=== PATIENT | female | born 1945 | race Caucasian/White ===

== ENCOUNTER 2020-09-23 08:35 | Day surgery (SDC) | payer MEDICARE ==
[~2020-09-23] VITALS: Ht 160 cm; Wt 59.7 kg
[2020-09-23] VITALS (13 sets, daily range): BP systolic 116–156; BP diastolic 59–114
[2020-09-23] MEDS ORDERED: CHOL20002 PO (09:11)
[2020-09-23] MEDS ORDERED: MECO10005 PO (09:11)
[2020-09-23] MEDS ORDERED: LORA-269 PO (09:11)
[2020-09-23] MEDS ORDERED: HYDR25TA5 PO (09:11)
[2020-09-23] MEDS ORDERED: VITA1CAP16 PO (09:11)
[2020-09-23] MEDS ORDERED: MELA5TAB21 PO (09:11)
[2020-09-23] MEDS ORDERED: normal saline 1000ml 1,000 ML IV PRN (09:30)
[2020-09-23] MEDS ORDERED: fentaNYL/PF 50MCG/1 ML 2ML syringe ONE (10:21)
[2020-09-23] MEDS ORDERED: midazolam 1 mg/ML 2ml injection ONE (10:21)
[2020-09-23] MEDS ORDERED: HYDROcodone/acetaminophen 5mg/325mg tablet PO PRN (10:50)
== END 2020-09-23 12:17 | disposition home or self-care (01) ==
LOC: SSTAY O 08:35
PROVIDERS: ATTEND Radiology Diagnostic Radiology
DX: E27.8 Other specified disorders of adrenal gland (principal); D35.02 Benign neoplasm of left adrenal gland; C34.32 Malignant neoplasm of lower lobe, left bronchus or lung; Z88.1 Allergy status to other antibiotic agents; Z79.899 Other long term (current) drug therapy
CPT/HCPCS: 49180; 77012; 88341; 88342; 99152; 99153; J2250; J3010; 50200; 88305; 88360